=== PATIENT | male | born 1950 | race Caucasian/White ===

== ENCOUNTER → 2016-11-08 | Day surgery (SDC) | payer MEDICARE, BC ==
[~2016-11-08] MED LIST: ALDACTONE; AMIODARONE HCL200 MG PO; AMLODIPINE BESYL5 MG PO; ASPIR-TRIN325 MG PO; ASPIRIN; ATENOLOL; ATORVASTATIN CA10 MG PO; CARVEDILOL25 MG PO; COZAAR; FISH OIL 1,0001 CAP; FISH OIL 1,0001 EACH PO; FLOMAX0.4 M1 PO; GLIPIZIDE ER2.5 MG PO; GLUCOTROL XL; HYDRALAZINE HCL50 MG PO; ISMO20 MG; ISOSORBIDE DINI30 MG PO; LANOXIN; LIPITOR; LOSARTAN POTAS100 MG PO; MULTI-VITAMIN1 TAB; TRENTAL400 MG; TRICOR; VITAMIN D1000 UNI2 PO
--- NOTE | ~2016-11-08 | OR ---
Unit #: [id number] #: [id number] Patient: SILVINA HARRINGTON [id number] [address] [id number] MR#: [id number] NAME: SILVINA HARRINGTON ROOM: Date of Procedure: 11/08/2016 Admission Date: 11/08/2016 Surgeon: Christiano Rubalcava M.D. : 1950 Attending Physician: Christiano Rubalcava M.D. Primary Care Physician: Krista Espinoza M.D. OPERATIVE REPORT PROCEDURE PERFORMED Colonoscopy with biopsies and colonoscopy with snare polypectomy. INDICATIONS FOR PROCEDURE A 66-year-old with average risk for colorectal cancer. MEDICATIONS Monitored anesthesia. POSTOPERATIVE FINDINGS 1. Two polyps, 2 to 3 each, transverse colon, removed using biopsy forceps. 2. Polyp, descending colon, 5 to 6 mm, snared and sent for histopathology. 3. Rest of the colon exam to cecum was normal. 4. Prep was good. 5. Internal hemorrhoids. PLAN Repeat colonoscopy in. 5 years. DESCRIPTION OF PROCEDURE The patient was explained of the procedure, risks, and benefits along with the risks and benefits of anesthesia. He was brought to the endoscopy room. Propofol anesthesia was given. Rectal exam was done, which was normal. Colonoscope was lubricated, passed up the rectum, advanced under direct vision all the way to the cecum. Several polyps were seen as described that were removed as above. I retroflexed in the rectum, small hemorrhoids seen. Scope was gently pulled out. He tolerated it well. No major complications were seen. Dictated by... Zion Ruiz/haleigh TD: 11/08/2016 16:24 JOB #: [id number] CC: Krista Espinoza M.D. Unit #: [id number] #: [id number] Patient: SILVINA HARRINGTON OPERATIVE REPORT Page 1 of 1 X Christiano Rubalcava MD X PROCEDURE OPERATIVE NOTE
== END | disposition home or self-care (01) ==
LOC: COPS 11:08
DX: Z12.11 Encounter for screening for malignant neoplasm of colon (principal); D12.3 Benign neoplasm of transverse colon; D12.4 Benign neoplasm of descending colon; K64.8 Other hemorrhoids; M19.90 Unspecified osteoarthritis, unspecified site; E11.9 Type 2 diabetes mellitus without complications; I25.2 Old myocardial infarction; I50.9 Heart failure, unspecified; Z90.49 Acquired absence of other specified parts of digestive tract; Z88.8 Allergy status to other drugs, medicaments and biological substances; Z79.82 Long term (current) use of aspirin; Z79.899 Other long term (current) drug therapy; Z79.52 Long term (current) use of systemic steroids; Z95.810 Presence of automatic (implantable) cardiac defibrillator
CPT/HCPCS: 82947; 88305